=== PATIENT | female | born 1975 | race Caucasian/White ===

== ENCOUNTER 2020-04-20 21:00 | Observation (INO) ==
[2020-04-20 21:27] LABS: Basophils % 0.3 % (0.0-0.8); Eosinophils % 0.6 % (0.00-10.9); Hemoglobin 10.6 GM/DL (12.0-16.0); Immature Granulocytes % 0.4 %; Immature Granulocytes Absolute 0.03 #; Lymphocytes # 1.8 10*3/uL (1.4-4.0); Lymphocytes % 25.3 % (21.3-54.2); Mean Corpuscular HGB Conc 31.2 GM/DL (32-36); Mean Corpuscular Volume 88.8 FL (87-102); Mean Platelet Volume 9.1 FL (9.6-12.0); Monocytes % 5.4 % (1.7-12.7); Platelet Count 269 T/CUMM (130-400); Red Blood Count 3.83 MC/CUMM (3.8-5.5); Red Cell Distribution Width 14.5 % (9.3-17.3)
[2020-04-20 21:56] LABS: Acetaminophen < 2.0 UG/ML (10-30); Salicylate 3.5 MG/DL (2.8-20)
[2020-04-20 21:57] LABS: Alanine Aminotransferase 19 U/L (13-56); Albumin 4.3 G/DL (3.4-5.0); Alkaline Phosphatase 82 U/L (45-117); Aspartate Amino Transferase 15 U/L (0-37); Bilirubin,Total < 0.39 MG/DL (0.2-1.0); Bilirubin,Urine Negative (Negative); Blood Urea Nitrogen 8 MG/DL (7-18); Blood, Urine Negative (Negative); Carbon Dioxide 23 MMOL/L (21-32); Estimated Glom Filtration Rate 59 ML/MIN; Glucose 113 MG/DL (74-106); Glucose,Urine (UA) Negative (Negative); Ketones,Urine Negative (Negative); Nitrite,Urine Negative (Negative); Osmolality,Calculated 275.5 MOS/KG (273-304); Potassium 3.9 MMOL/L (3.5-5.1); Protein,Urine Negative; Sodium 139 MMOL/L (136-145); Total Protein 7.2 G/DL (6.4-8.3); Urine Appearance CLEAR (Clear); Urine Color Yellow (Yellow); Urine Specific Gravity 1.008 (1.001-1.035); Urine Urobilinogen < 2.0 EU/DL (0.2-1.0)
[2020-04-20 22:02] LABS: Mucus,Urine Occasional /LPF (Occasional); RBC,Urine 3 /HPF (0-4); WBC,Urine 1 /HPF (0-6)
[2020-04-20 22:05] LABS: Barbiturates Screen,Urine Negative (Negative); Benzodiazepines Screen,Urine Positive (Negative); Cannabinoid Screen,Urine Positive (Negative); Opiate Screen,Urine Negative (Negative); Phencyclidine Screen,Urine Negative (Negative)
[2020-04-20] MEDS ORDERED: SODIUM CHLORIDE 0.9% 1,000 ML IV STA (22:06)
[2020-04-21] MEDS ORDERED: ACETAMINOPHEN 500 MG TABLET ONE (00:57)
[2020-04-21] MEDS ORDERED: ACETAMINOPHEN 500 MG TABLET PO STA (01:00)
[2020-04-21] MEDS ORDERED: DOCUSATE SODIUM 100 MG CAPSULE PO PRN (02:13)
[2020-04-21] MEDS ORDERED: ONDANSETRON 4 MG/2 ML VIAL IV PRN (02:13)
[2020-04-21] MEDS ORDERED: GLUCAGON 1 MG VIAL IM PRN (02:13)
[2020-04-21] MEDS ORDERED: DEXTROSE 50% 25 GM/50 ML VIAL IV PRN (02:13)
[2020-04-21] MEDS ORDERED: ACETAMINOPHEN 325 MG TABLET PO PRN (02:13)
[2020-04-21] MEDS ORDERED: traZODone 50 MG TABLET PO ONE (02:17)
[2020-04-21] MEDS ORDERED: ENOXAPARIN 40 MG/0.4 ML SYRINGE SUBCUT SCH (02:30)
[2020-04-21 15:54] VITALS: BP 137/84
== END 2020-04-21 17:05 ==
LOC: EDUNIT# → EDBD → N.ED 21:00 → N.EDINP 21:00
PROVIDERS: ADMIT Internal Medicine; ATTEND Internal Medicine